=== PATIENT | male | born 1950 | race Caucasian/White ===

== ENCOUNTER → 2017-07-31 | Outpatient (CLI) | payer OTHER ==
[~2017-07-31] VITALS: Ht 185.4 cm; Wt 74.8 kg
[~2017-07-31] MED LIST: ASPIR 8181 M1 PO; FISH OIL 1,001000 M2 PO; THERAGRAN STRE1 EACH PO; ZOCOR40 MG PO
--- NOTE | ~2017-07-31 | CATHLAB ---
[facility] [address] [place] [address] INVASIVE PROCEDURE REPORT Name: Teodora ANDREWS Room #: REG [facility]PITALBooker[facility] [id number] Admission: 07/31/17 Attend Phys: Tho Rizzo MD Discharge: Date of : 50 Date of Service: 07/31/17 1834 Report #: [id number] THIS REPORT FOR: //name// APPROVED REPORT Patient Details Patient Status: Out-Patient Room #: The patient is a 67 year-old male Event Personnel Tho Rizzo Vp Organizational Development, Ramandeep Bell RN RN, Neil Rocha RN RN, Sonia Russell Knisely, Ceola RN RN, Jacquelin Betancur RTLeo Monitor Procedures Performed Left Heart Cath w/or w/o Coronaries [id number] [facility] Indication Positive stress test, Chest pain Risk Factors Hypercholesterolemia, Coronary Artery DiseaseHypertension Procedure Narrative The Right Groin^ was infiltrated with 1% Lidocaine subcutaneous anesthesia. A PINNACLE 4FR Sheath #[id number] sheath was inserted into the RFA^. Coronary angiography was performed using coronary diagnostic catheters. The right coronary system was accessed and visualized with a JR4 catheter. The left coronary system was accessed and visualized with a JL4 catheter. The left ventricle was accessed and visualized with a PIGTAIL catheter. Left ventricular/Aortic Valve gradient assessed via catheter pullback. Left ventriculogram was performed in 30 degree projection. Hemostasis was obtained with manual pressure following sheath removal without any complications. The patient tolerated the procedure well and there were no complications associated with the procedure. There was no hematoma. Intraoperative Conscious Sedation Sedation start time: 12:40 Case end Time: 12:53 Fentanyl 50.0 mcg Versed 1.0 mg Fluoro Time: 3.10 minutes Dose: 3598 mGy [facility] [place] [address] INVASIVE PROCEDURE REPORT Name: Teodora ANDREWS Room #: REG [facility]#: [id number] Admission: 07/31/17 Attend Phys: Tho Rizzo MD Discharge: Date of : 50 Date of Service: 07/31/17 1834 Report #: [id number] Contrast Type and Amount: Omnipaque 75 ml Coronary Angiography The patient's coronary anatomy is right dominant. Diagnostic Cath Left Main Large-caliber vessel, no flow limiting lesions. LAD Minimal plaquing in the proximal segment, -10%. The remaining segments do not exhibit any flow-limiting lesions. Circumflex Moderate size caliber vessel, with minimal disease in proximal segment, 10%. OM1 Distal OM branch, with no flow-limiting lesions. Right Coronary Moderate to large size caliber vessel with calcifications in proximal and mid segments. There is mild to moderate diffuse disease within this area, 30-40%. R PDA Patent, no flow limiting lesions. Ramus Mild plaquing in the proximal segment, 20%. Left Ventriculography The left ventricle is normal in size with normal contractility. The left ventricular ejection fraction is estimated to be 55-60%. Hemodynamics The aortic pressure is 117/69 mmHg with a mean of 80 mmHg. The left ventricular pressure is 134/7 mmHg with a mean of mmHg. The left ventricular end diastolic pressure is 18 mmHg. There was no gradient across the aortic valve upon pullback. Pullback from the left ventricle to the aorta revealed no gradient across the aortic valve. Conclusion 1. 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 2. Normal LV systolic function. 3. Recommend medical therapy. Recommendations Medical Therapy <ELECTRONICALLY SIGNED> By: Tho Rizzo MD 07/31/171833 33 33 Tho Rizzo MD /INF
[2017-07-31 08:47] LABS: HEMATOCRIT 40.2 % (42.0-52.0); HEMOGLOBIN 13.6 gm/dL (14.0-18.0); MCH 29.3 pg (26.0-34.0); MCHC 33.7 g/dL (28.0-37.0); MCV 86.8 fL (80.0-100.0); RBC 4.63 mil/uL (4.50-6.00); RDW 13.2 % (10.5-14.5)
[2017-07-31 08:54] LABS: CALCIUM 9.1 mg/dL (8.5-10.1); CREATININE 1.1 mg/dL (0.7-1.3); POTASSIUM 4.1 mmol/L (3.5-5.1)
[2017-07-31 09:03] VITALS: BP 119/76
== END | disposition home or self-care (01) ==
LOC: CATH 02:24
PROVIDERS: Internal Medicine Cardiovascular Disease
DX: I25.10 Atherosclerotic heart disease of native coronary artery without angina pectoris (principal); E78.00 Pure hypercholesterolemia, unspecified; I10 Essential (primary) hypertension; Z82.49 Family history of ischemic heart disease and other diseases of the circulatory system

== ENCOUNTER → 2019-10-27 | Outpatient (CLI) | payer OTHER | LOC: SJCVCIMAG 11:32 | DX: R00.2 Palpitations (principal); R09.89 Other specified symptoms and signs involving the circulatory and respiratory systems; I49.3 Ventricular premature depolarization; R42 Dizziness and giddiness; I25.10 Atherosclerotic heart disease of native coronary artery without angina pectoris; E78.00 Pure hypercholesterolemia, unspecified; Z79.82 Long term (current) use of aspirin; Z79.899 Other long term (current) drug therapy; Z87.891 Personal history of nicotine dependence ==

== ENCOUNTER → 2020-07-12 | Outpatient (CLI) | payer OTHER | LOC: SJCVCIMAG 07:30 | PROVIDERS: ATTEND Internal Medicine Cardiovascular Disease | DX: I25.10 Atherosclerotic heart disease of native coronary artery without angina pectoris (principal); E78.00 Pure hypercholesterolemia, unspecified; I49.3 Ventricular premature depolarization; Z79.899 Other long term (current) drug therapy; Z87.891 Personal history of nicotine dependence ==

== ENCOUNTER → 2021-04-11 | Outpatient (CLI) | payer OTHER | LOC: SJCVC 13:03 | PROVIDERS: ATTEND Internal Medicine Cardiovascular Disease | DX: I25.10 Atherosclerotic heart disease of native coronary artery without angina pectoris (principal); E78.00 Pure hypercholesterolemia, unspecified; I49.3 Ventricular premature depolarization; F41.9 Anxiety disorder, unspecified; Z79.82 Long term (current) use of aspirin; Z79.899 Other long term (current) drug therapy; Z87.891 Personal history of nicotine dependence; Z72.89 Other problems related to lifestyle ==

== ENCOUNTER → 2021-09-26 | Outpatient (CLI) | payer OTHER | LOC: SJCVCIMAG 10:19 → SJCVC 10:19 | PROVIDERS: ATTEND Internal Medicine Cardiovascular Disease | DX: I08.3 Combined rheumatic disorders of mitral, aortic and tricuspid valves (principal); I25.10 Atherosclerotic heart disease of native coronary artery without angina pectoris; I49.3 Ventricular premature depolarization; E78.00 Pure hypercholesterolemia, unspecified; Z79.82 Long term (current) use of aspirin; Z79.899 Other long term (current) drug therapy; Z72.89 Other problems related to lifestyle; Z87.891 Personal history of nicotine dependence ==